=== PATIENT | male | born 1985 | race Caucasian/White ===

== ENCOUNTER → 2023-08-14 | Outpatient (CLI) | payer OTHER ==
--- NOTE | 2023-08-14 13:08 | CA ---
Exercise Stress Test Report Name: Mat Bennett Exam Date: 08/14/2023 09:03 Exam Location: [facility] Ht (in): 68 Wt (lb): 220 BSA: 2.13 Ordering Phys: Diane Avalos DO Referring Phys: Vera Leyva Technologist: Priya Angel RDCS Age: 38 Gender: M : 1985 Procedure CPT: Indications: Z13.6 ENCOUNTER FOR SCREENING FO ICD-10 Codes: Patient History: GIDEON, HTN, CHOL Medications: LISINOPRIL AND AMLODIPINE Meds past 24 hrs: Pretest Chest Pain: STRESS TEST Wm Protocol Exercise Duration (min:sec): 09:[address] Depressions (mm): Angina Score: Jernigan Score: Resting HR (bpm): 84 Peak HR (bpm): 157 Resting BP (mmHg): 137 / 89 Peak BP (mmHg): 190 / 90 MPHR: 182 Target HR: 155 % MPHR: 86 METS: 10.9 Total Dose: Peak Dose: Atropine: Double Product: 46020 BP Response: Stress Termination: Reached target heart rate Stress Symptoms: No chest pain or symptoms Stress Summary: ECG ANALYSIS Resting ECG: Stress ECG: CONCLUSIONS Excellent exercise tolerance Normal electrocardiogram stress testing Dr. Aly Cruz MD (Electronically Signed) Final Date: 14 August 2023 13:07
== END | disposition home or self-care (01) ==
LOC: RADNMMAIN 08:41
PROVIDERS: ATTEND Family Medicine
DX: Z13.6 Encounter for screening for cardiovascular disorders (principal)
CPT/HCPCS: 93017